=== PATIENT | female | born 1970 | race Caucasian/White ===

== ENCOUNTER 2025-01-08 07:54 | Day surgery (SDC) | payer OTHER ==
[2025-01-08] MEDS ORDERED: BUPIVACAINE 0.5% VIAL IJ ONE (07:55)
[2025-01-08] MEDS ORDERED: methylPREDNISolone acetate IM ONE (07:55)
[2025-01-08 08:16] LABS: HCG URINE TEST NEGATIVE (NEGATIVE)
[2025-01-08] MEDS ORDERED: propofoL IV ONE (09:02)
--- NOTE | 2025-01-08 10:37 | XRAY ---
Indication: Left hip and greater trochanter bursa injection. Intraoperative fluoroscopy provided for 28 seconds. 2 digital spot image submitted for interpretation demonstrates needle tip projecting lateral to left femur neck. Second needle tip lateral to greater trochanter. Small amount of contrast injected for both needle tip placement. Correlate with intraoperative findings/report.
--- NOTE | 2025-01-08 10:38 | XRAY ---
28 seconds of fluoroscopy was used in surgery for a left intra-articular hip and greater trochanteric bursa injection.
== END 2025-01-08 09:36 | disposition home or self-care (01) ==
LOC: SDC-PAIN 07:54
PROVIDERS: ATTEND Psychiatry & Neurology Pain Medicine
DX: M16.12 Unilateral primary osteoarthritis, left hip (principal); E11.9 Type 2 diabetes mellitus without complications
CPT/HCPCS: 20610; 73502; 77002; 81025; 82947; J1010; J2704; Q9966

== ENCOUNTER 2025-09-16 16:28 | Emergency (ER) | payer OTHER ==
--- NOTE | 2025-09-16 16:56 | ERPHSYRPT ---
- History of Present Illness Time Seen by Provider: 09/16/25 16:52 Source: patient Exam Limitations: no limitations Physician History: 55-year-old female history of hypertension type 2 diabetes autoimmune hepatitis with cirrhosis presents to our ED with periumbilical abdominal pain and bright red blood per rectum. Patient's last episode of hematochezia was prior to arrival. No trauma no fever. No nausea no vomiting no diarrhea no rash. Patient declined pain medication. Pain described as an ache that is localized no radiation. Pain worse with palpation. Pain improved with rest. Patient voices no other complaints or concerns at this time. Patient states she has never had a colonoscopy Portions of this note were created with voice recognition technology. There may be grammatical, spelling, punctuation or sound alike errors Timing/Duration: today Severity: moderate Modifying Factors: Improves With: nothing Associated Symptoms: denies symptoms Allergies/Adverse Reactions: Sulfa (Sulfonamide Antibiotics) Allergy (Verified 09/16/25 16:40) Home Medications: Atorvastatin Calcium 10 mg PO DAILY 09/16/25 [History] Furosemide [Lasix] 20 mg PO DAILY 09/16/25 [History] Glimepiride 2 mg [Amaryl 2 MG] 6 mg PO DAILY 09/16/25 [History] Metformin HCl 500 mg [Glucophage 500 MG] 500 mg PO TID 09/16/25 [History] Metoprolol Tartrate 25 mg [Lopressor 25MG Tab] 25 mg PO BID 09/16/25 [History] PARoxetine HCL [Paxil] 20 mg PO DAILY 09/16/25 [History] Pantoprazole Sodium 40 mg PO DAILY 09/16/25 [History] Trazodone HCl 100 mg PO HS 09/16/25 [History] - Review of Systems All Other Systems: Reviewed and Negative - Past Medical History Neurological History: No Pertinent History Cardiac History: Hypertension Respiratory History: No Pertinent History Endocrine Medical History: Diabetes Type II, Liver Disease Musculoskeletal History: Osteoarthritis, Rheumatoid Arthritis Other Medical History: PMH: DM II, LIVER CIRRHOSIS, HTN (MEDICATED), HEART MURMUR (CAUSES SOB), OA, RA. PSH: HERNIA SURGERY, BREAST CANCER LUMPECTOMY - Nursing Vital Signs Nursing Vital Signs: Initial Vital Signs Temperature 97 F 09/16/25 16:29 Pulse Rate 91 H 09/16/25 16:29 Respiratory Rate 20 09/16/25 16:29 Blood Pressure 161/83 09/16/25 16:29 O2 Sat by Pulse Oximetry 96 09/16/25 16:29 Pain Scale Pain Intensity 7 - Physical Exam General Appearance: no apparent distress, alert Eye Exam: PERRL/EOMI Ears, Nose, Throat Exam: normal ENT inspection, moist mucous membranes Neck Exam: normal inspection, full range of motion Respiratory Exam: normal breath sounds, lungs clear, airway intact, No respiratory distress Cardiovascular Exam: regular rate/rhythm, normal heart sounds, normal peripheral pulses Gastrointestinal/Abdomen Exam: soft, normal bowel sounds, tenderness (Mild generalized abdominal tenderness), No mass Back Exam: normal inspection, normal range of motion, No CVA tenderness, No vertebral tenderness Extremity Exam: normal inspection, normal range of motion, pelvis stable Neurologic Exam: alert, oriented x 3, cooperative, normal mood/affect, sensation nml, No motor deficits Skin Exam: normal color, warm, dry, No rash Lymphatic Exam: No adenopathy SpO2 Interpretation: normal O2 Delivery: Room Air - Course Nursing assessment & vital signs reviewed: Yes EKG Interpreted by Me: RATE (73), Sinus Rhythm, NORMAL AXIS, NORMAL INTERVALS, NORMAL QRS - CT Exams Abdomen/Pelvis CT Interpretation: Tele-radiologist Report (New cirrhotic liver with tiny ascites. 2.6 cm hepatic cysts. 4 mm nonobstructing left renal stone. Stable hepatosplenomegaly. Tiny right adrenal adenoma, nonobstructing right renal punctate stone. Small scattered mesenteric periaortic nodes. Remaining abdomen pelvis negative) Ordered Tests: Active Orders 24 hr Category Date Time Status EKG-ER Only STAT Care 09/16/25 17:17 Active IV Insertion STAT Care 09/16/25 17:17 Active ABDOMEN AND PELVIS W/0 CONTRAS [CT] Stat Exams 09/16/25 17:18 Taken CBC W DIFF Stat Lab 09/16/25 17:20 Completed CBC W DIFF Stat Lab 09/17/25 06:51 Ordered CMP Stat Lab 09/16/25 17:20 Completed CMP Stat Lab 09/17/25 06:51 Ordered CULTURE,URINE Stat Lab 09/16/25 19:15 Received LIPASE Stat Lab 09/16/25 17:20 Completed PROTIME WITH INR Stat Lab 09/16/25 18:10 Completed PTT Stat Lab 09/16/25 18:10 Completed TROPONIN Q4H Lab 09/16/25 17:20 Completed TROPONIN Q4H Lab 09/16/25 21:09 Completed TROPONIN Q4H Lab 09/17/25 04:27 Completed UA W/RFX UR CULTURE Stat Lab 09/16/25 19:15 Completed Medication Summary Generic Name Dose Route Start Last Admin Trade Name Freq PRN Reason Stop Dose Admin Sodium Chloride 1,000 mls @ 100 mls/hr 09/16/25 17:30 09/17/25 04:15 Sodium Chloride 0.9% 1000 Ml IV 10/16/25 17:29 100 mls/hr .Q10H DEANGELO Administration Dextrose/Sodium Chloride 500 mls @ 50 mls/hr 09/16/25 18:00 09/17/25 01:21 Dextrose 5%-1/2ns Iv Soln. 500 Ml IV 10/16/25 17:59 0 mls/hr .Q10H DEANGELO Infusion Pantoprazole Sodium 80 mg/ 500 mls @ 50 mls/hr 09/16/25 20:00 09/17/25 06:17 Sodium Chloride IV 10/16/25 19:59 Infused .Q10H DEANGELO Infusion Discontinued Medications Generic Name Dose Route Start Last Admin Trade Name Roosevelt PRN Reason Stop Dose Admin Acetaminophen 1,000 mg 09/17/25 01:20 09/17/25 01:23 Acetaminophen 500 Mg Tablet PO 09/17/25 01:21 1,000 mg STAT STA Administration Acetaminophen Confirm 09/17/25 01:22 Acetaminophen 500 Mg Tablet Administered 09/17/25 01:23 Dose 1,000 mg .ROUTE .STK-MED ONE Sodium Chloride Confirm 09/16/25 20:16 Sodium Chloride 0.9% 500 Ml Administered 09/16/25 20:17 Dose 500 mls @ ud IV .STK-MED ONE Nitrofurantoin Macrocrystals 100 mg 09/16/25 19:31 09/16/25 19:50 Nitrofurantoin Macro 100 Mg Capsule PO 09/16/25 19:32 100 mg STAT ONE Administration Nitrofurantoin Macrocrystals Confirm 09/16/25 19:49 Nitrofurantoin Macro 100 Mg Capsule Administered 09/16/25 19:50 Dose 100 mg .ROUTE .STK-MED ONE Pantoprazole Sodium Confirm 09/16/25 20:16 Pantoprazole 40 Mg Vial Administered 09/16/25 20:17 Dose 80 mg IV .[employer] ONE Lab/Rad Data: Laboratory Result Diagrams 09/16/25 17:20 09/16/25 17:20 Laboratory Results 09/17/25 09/16/25 09/16/25 Range/Units 04:27 21:09 19:15 WBC (3.98-10.04) x10^3/uL RBC (3.93-5.22) x10^6/uL Hgb (11.2-15.7) g/dL Hct (34.1-44.9) % MCV (79.4-94.8) fL MCH (25.6-32.2) pg MCHC (32.2-35.5) g/dL RDW (11.7-14.4) % Plt Count (182-369) x10^3/uL MPV (9.4-12.3) fL Gran % (34.0-71.1) % Immature Gran % (Auto) (0.001-0.429) % Nucleat RBC Rel Count (0.00-0.2) % Eos # (Auto) (0.04-0.36) x10^3/uL Immature Gran # (Auto) (0.001-0.031) x10^3u/L Absolute Lymphs (auto) (1.18-3.74) x10^3/uL Absolute Monos (auto) (0.24-0.86) x10^3/uL Absolute Nucleated RBC (0.00-0.012) x10^3u/L Lymphocytes % (19.3-51.7) % Monocytes % (4.7-12.5) % Eosinophils % (0.7-5.8) % Basophils % (0.1-1.2) % Absolute Granulocytes (1.56-6.13) x10^3/uL Basophils # (0.01-0.08) x10^3/uL PT (9.4-12.5) SECONDS INR (0.8-3.0) APTT (25.1-36.5) SECONDS Sodium (135-145) mmol/L Potassium (3.5-5.1) mmol/L Chloride (98-107) mmol/L Carbon Dioxide (22-30) mmol/L Anion Gap (5-15) MEQ/L BUN (7-17) mg/dL Creatinine (0.52-1.04) mg/dL Estimated GFR ML/MIN Glucose (74-106) mg/dL Calcium (8.4-10.2) mg/dL Total Bilirubin (0.2-1.3) mg/dL AST (14-36) U/L ALT (0-35) U/L Alkaline Phosphatase (38-126) U/L Troponin I < 0.012 < 0.012 (0.000-0.033) ng/mL Serum Total Protein (6.3-8.2) g/dL Albumin (3.5-5.0) g/dL Lipase (23-300) U/L Urine Color Dark Yellow A (Yellow) Urine Appearance Cloudy A (Clear) Urine pH 5.5 (4.6-8.0) Ur Specific Herrin 1.020 (1.005-1.030) Urine Protein Trace A (Negative) Urine Glucose (UA) Negative (Negative) mg/dL Urine Ketones Negative (Negative) Urine Blood Small A (Negative) Urine Nitrite Negative (Negative) Urine Bilirubin Small A (Negative) Urine Urobilinogen 1.0 A (0.2) mg/dL Ur Leukocyte Esterase Trace A (Negative) U Hyaline Cast (Auto) NONE SEEN (0-2) /LPF Urine Microscopic RBC 11-20 A (0-5) /HPF Urine Microscopic WBC 6-10 A (0-5) /HPF Ur Epithelial Cells Few (None Seen) /HPF Urine Bacteria Few A (None Seen) /HPF Urine Culture Reflexed YES (NO) Slides for Path Review 09/16/25 09/16/25 09/16/25 Range/Units 18:10 17:20 17:20 WBC (3.98-10.04) x10^3/uL RBC (3.93-5.22) x10^6/uL Hgb (11.2-15.7) g/dL Hct (34.1-44.9) % MCV (79.4-94.8) fL MCH (25.6-32.2) pg MCHC (32.2-35.5) g/dL RDW (11.7-14.4) % Plt Count (182-369) x10^3/uL MPV (9.4-12.3) fL Gran % (34.0-71.1) % Immature Gran % (Auto) (0.001-0.429) % Nucleat RBC Rel Count (0.00-0.2) % Eos # (Auto) (0.04-0.36) x10^3/uL Immature Gran # (Auto) (0.001-0.031) x10^3u/L Absolute Lymphs (auto) (1.18-3.74) x10^3/uL Absolute Monos (auto) (0.24-0.86) x10^3/uL Absolute Nucleated RBC (0.00-0.012) x10^3u/L Lymphocytes % (19.3-51.7) % Monocytes % (4.7-12.5) % Eosinophils % (0.7-5.8) % Basophils % (0.1-1.2) % Absolute Granulocytes (1.56-6.13) x10^3/uL Basophils # (0.01-0.08) x10^3/uL PT 12.8 H (9.4-12.5) SECONDS INR 1.15 (0.8-3.0) APTT 28.7 (25.1-36.5) SECONDS Sodium 135 (135-145) mmol/L Potassium 3.6 (3.5-5.1) mmol/L Chloride 105 (98-107) mmol/L Carbon Dioxide 23 (22-30) mmol/L Anion Gap 11.0 (5-15) MEQ/L BUN 7 (7-17) mg/dL Creatinine 0.39 L (0.52-1.04) mg/dL Estimated GFR 117.5 ML/MIN Glucose 75 (74-106) mg/dL Calcium 9.3 (8.4-10.2) mg/dL Total Bilirubin 1.30 (0.2-1.3) mg/dL AST 93 H (14-36) U/L ALT 24 (0-35) U/L Alkaline Phosphatase 77 (38-126) U/L Troponin I < 0.012 (0.000-0.033) ng/mL Serum Total Protein 6.9 (6.3-8.2) g/dL Albumin 3.1 L (3.5-5.0) g/dL Lipase 148 (23-300) U/L Urine Color (Yellow) Urine Appearance (Clear) Urine pH (4.6-8.0) Ur Specific Herrin (1.005-1.030) Urine Protein (Negative) Urine Glucose (UA) (Negative) mg/dL Urine Ketones (Negative) Urine Blood (Negative) Urine Nitrite (Negative) Urine Bilirubin (Negative) Urine Urobilinogen (0.2) mg/dL Ur Leukocyte Esterase (Negative) U Hyaline Cast (Auto) (0-2) /LPF Urine Microscopic RBC (0-5) /HPF Urine Microscopic WBC (0-5) /HPF Ur Epithelial Cells (None Seen) /HPF Urine Bacteria (None Seen) /HPF Urine Culture Reflexed (NO) Slides for Path Review 09/16/25 Range/Units 17:20 WBC 3.0 L (3.98-10.04) x10^3/uL RBC 3.51 L (3.93-5.22) x10^6/uL Hgb 9.6 L (11.2-15.7) g/dL Hct 30.9 L (34.1-44.9) % MCV 88.0 (79.4-94.8) fL MCH 27.4 (25.6-32.2) pg MCHC 31.1 L (32.2-35.5) g/dL RDW 18.4 H (11.7-14.4) % Plt Count 51 L (182-369) x10^3/uL MPV 10.5 (9.4-12.3) fL Gran % 64.5 (34.0-71.1) % Immature Gran % (Auto) 4.0 H (0.001-0.429) % Nucleat RBC Rel Count 0.0 (0.00-0.2) % Eos # (Auto) 0.02 L (0.04-0.36) x10^3/uL Immature Gran # (Auto) 0.12 H (0.001-0.031) x10^3u/L Absolute Lymphs (auto) 0.66 L (1.18-3.74) x10^3/uL Absolute Monos (auto) 0.26 (0.24-0.86) x10^3/uL Absolute Nucleated RBC 0.00 (0.00-0.012) x10^3u/L Lymphocytes % 21.9 (19.3-51.7) % Monocytes % 8.6 (4.7-12.5) % Eosinophils % 0.7 (0.7-5.8) % Basophils % 0.3 (0.1-1.2) % Absolute Granulocytes 1.94 (1.56-6.13) x10^3/uL Basophils # 0.01 (0.01-0.08) x10^3/uL PT (9.4-12.5) SECONDS INR (0.8-3.0) APTT (25.1-36.5) SECONDS Sodium (135-145) mmol/L Potassium (3.5-5.1) mmol/L Chloride (98-107) mmol/L Carbon Dioxide (22-30) mmol/L Anion Gap (5-15) MEQ/L BUN (7-17) mg/dL Creatinine (0.52-1.04) mg/dL Estimated GFR ML/MIN Glucose (74-106) mg/dL Calcium (8.4-10.2) mg/dL Total Bilirubin (0.2-1.3) mg/dL AST (14-36) U/L ALT (0-35) U/L Alkaline Phosphatase (38-126) U/L Troponin I (0.000-0.033) ng/mL Serum Total Protein (6.3-8.2) g/dL Albumin (3.5-5.0) g/dL Lipase (23-300) U/L Urine Color (Yellow) Urine Appearance (Clear) Urine pH (4.6-8.0) Ur Specific Herrin (1.005-1.030) Urine Protein (Negative) Urine Glucose (UA) (Negative) mg/dL Urine Ketones (Negative) Urine Blood (Negative) Urine Nitrite (Negative) Urine Bilirubin (Negative) Urine Urobilinogen (0.2) mg/dL Ur Leukocyte Esterase (Negative) U Hyaline Cast (Auto) (0-2) /LPF Urine Microscopic RBC (0-5) /HPF Urine Microscopic WBC (0-5) /HPF Ur Epithelial Cells (None Seen) /HPF Urine Bacteria (None Seen) /HPF Urine Culture Reflexed (NO) Slides for Path Review YES - Progress Progress: improved Progress Note: Case discussed with our hospitalist Dr. Arguelles who who feels patient should be transferred to higher level of care/to her GI doctor. I spoke to our hospitalist at 7:47 PM 09/16/25 19:47 Patient accepted for transfer by Dr. Stover hospitalist at [facility]. Patient was accepted at 8:07 PM 09/16/25 20:10 55-year-old female history of hypertension type 2 diabetes autoimmune hepatitis with cirrhosis presents to our ED with periumbilical abdominal pain and bright red blood per rectum. Patient's last episode of hematochezia was prior to arrival. No trauma no fever. No nausea no vomiting no diarrhea no rash. Patient declined pain medication. Physical exam reveals some abdominal discomfort. CT abdomen pelvis reveals new cirrhotic liver with tiny ascites. Stable hepatosplenomegaly with right adrenal adenoma. Nonobstructing stones. Scattered mesenteric periaortic nodes. Laboratory workup reveals a pancytopenia. WBC at 3.0. Hemoglobin 9.6. Platelet of 51. Coags are normal. Lipase within normal limits. No significant abnormalities observed with reference to liver enzymes. UA observed and urinalysis. Patient received a dose of Macrobid in our ED. Patient reassessed. She is resting comfortably. She continues to decline pain medication. IV fluids/maintenance fluids administered. We contacted [facility] however there are currently no beds available. They expect beds to be available at noon. Patient resting comfortably. No active pain. No active bleeding. Vitals are stable. A.m. labs ordered to reassess for change in H&H. Is currently the change of shift. Patient endorsed to incoming physician to follow up on pending labs and oversee transfer. Patient may have clear liquid diet this morning pending transfer. Patient updated on plan of care. Patient resting comfortably. She voices no other complaints or concerns at this time. Portions of this note were created with voice recognition technology. There may be grammatical, spelling, punctuation or sound alike errors 09/17/25 06:50 History obtained from patient. Differential diagnosis includes bleeding hemorrhoid, diverticulitis, colitis Complexity of problems addressed is moderate acute complicated. No critical care time. Complexity of data reviewed and analyzed is extensive. Test ordered chest reviewed results analyzed and correlated clinically with history and physical exam. Management discussed with hospitalist at [facility]. Risk of complication and or risk of morbidity/mortality of patient management is high. Patient requires transfer to higher level of care. Vital stable. Time spent to transfer patient is approximately 20 minutes. Plan of care established for shared decision making. No social determinants of health present to impede follow-up. Portions of this note were created with voice recognition technology. There may be grammatical, spelling, punctuation or sound alike errors 09/17/25 07:00 Counseled pt/family regarding: lab results, diagnosis, rad results - Departure Departure Disposition: Transfer Clinical Impression: Cirrhosis of liver, Bilateral nephrolithiasis, Ascites, Hepatic cyst, Hepatosplenomegaly, Right adrenal adenoma, Mesenteric periaortic lymph nodes, Bright red blood per rectum, Pancytopenia, UTI (urinary tract infection) Condition: Stable Critical Care Time: No Referrals: DAKSHA GARCIA PILLING MACHINE OPERATOR [Primary Care Provider, UNKNOWN] - Follow up/PCP as directed
[2025-09-16 17:02] VITALS: TEMP 97
[2025-09-16 17:27] LABS: BASOPHIL % 0.3 % (0.1-1.2); Basophil (Absolute #) 0.01 x10^3/uL (0.01-0.08); Eosinophil (Absolute #) 0.02 x10^3/uL (0.04-0.36); Hematocrit 30.9 % (34.1-44.9); Hemoglobin 9.6 g/dL (11.2-15.7); IMMATURE GRAN # 0.12 x10^3u/L (0.001-0.031); IMMATURE GRAN % 4.0 % (0.001-0.429); Lymphocyte (Absolute #) 0.66 x10^3/uL (1.18-3.74); Mean Corpuscular Hemoglobin 27.4 pg (25.6-32.2); Mean Corpuscular Hgb Concent. 31.1 g/dL (32.2-35.5); Monocyte (Absolute #) 0.26 x10^3/uL (0.24-0.86); NUCLEATED RBC # 0.00 x10^3u/L (0.00-0.012); NUCLEATED RBC % 0.0 % (0.00-0.2); Platelet Count 51 x10^3/uL (182-369); Red Blood Count 3.51 x10^6/uL (3.93-5.22); White Blood Count 3.0 x10^3/uL (3.98-10.04)
[2025-09-16 17:34] LABS: Calcium 9.3 mg/dL (8.4-10.2); Carbon Dioxide 23.0 mmol/L (22-30); Creatinine 1 0.39 mg/dL (0.52-1.04); EST GLOMERULAR FILTRATION RATE 117.5 ML/MIN; Glucose 75.0 mg/dL (74-106); Potassium 3.6 mmol/L (3.5-5.1); SGOT/AST 93.0 U/L (14-36); SGPT/ALT 24.0 U/L (0-35); Total Protein 6.9 g/dL (6.3-8.2)
[2025-09-16] MEDS ORDERED: Dextrose 5%-1/2NS IV Soln. 500 ML 500 ML IV ONE (17:53)
[2025-09-16] MEDS: Dextrose 5%-1/2NS IV Soln. 500 ML 500 ML IV SCH (17:54)
[2025-09-16 19:28] LABS: Glucose, Urine Negative (Negative); Protein,Urine Dip Trace (Negative)
[2025-09-16 19:30] LABS: INR 1.15 (0.8-3.0); PROTIME 12.8 SECONDS (9.4-12.5); PTT 28.7 SECONDS (25.1-36.5)
[2025-09-16] MEDS ORDERED: Macrobid 100MG Capsule ONE (19:49)
[2025-09-16] MEDS: Macrobid 100MG Capsule PO ONE (19:50)
[2025-09-16 19:58] LABS: Slide Review 1 YES
[2025-09-16] MEDS ORDERED: PROTONIX 40 MG IV IV ONE (20:16)
[2025-09-16] MEDS: PROTONIX 40 MG IV*** 80 MG in Sodium Chloride 0.9% 500 ML 500 ML IV SCH (20:17)
[2025-09-17] MEDS ORDERED: TYLENOL EXTRA STRENGTH 500 MG ONE (01:22)
[2025-09-17] MEDS: TYLENOL EXTRA STRENGTH 500 MG PO STA (01:23)
[2025-09-17 07:20] LABS: Calcium 8.5 mg/dL (8.4-10.2); Carbon Dioxide 23.0 mmol/L (22-30); Creatinine 1 0.44 mg/dL (0.52-1.04); EST GLOMERULAR FILTRATION RATE 114.2 ML/MIN; Glucose 104.0 mg/dL (74-106); Potassium 3.2 mmol/L (3.5-5.1); SGOT/AST 90.0 U/L (14-36); SGPT/ALT 22.0 U/L (0-35); Total Protein 6.5 g/dL (6.3-8.2)
[2025-09-17 07:24] LABS: Hematocrit 28.0 % (34.1-44.9); Hemoglobin 8.5 g/dL (11.2-15.7); Mean Corpuscular Hemoglobin 26.7 pg (25.6-32.2); Mean Corpuscular Hgb Concent. 30.4 g/dL (32.2-35.5); Platelet Count 41 x10^3/uL (182-369); Red Blood Count 3.18 x10^6/uL (3.93-5.22)
[2025-09-17 07:33] LABS: White Blood Count 2.0 x10^3/uL (3.98-10.04)
--- NOTE | 2025-09-17 08:47 | XRAY ---
Indication: Pain. Multiple contiguous axial images obtained through the abdomen and pelvis without contrast. Comparison: January 20, 2017 Lung bases again demonstrates a few tiny calcified granulomas in both lung bases and distal paraesophageal. No infiltrate or effusion. Heart not enlarged. Noncontrasted stomach and bowel loops appear nonobstructed. New cirrhotic liver with tiny ascites greatest around liver and splenorenal varices. Also new 2.6 cm left lobe hepatic cyst. Liver remains enlarged measuring 24.3 cm and spleen remains enlarged measuring 25.1 cm. Stable 1.3 cm right adrenal adenoma, nonobstructing right renal punctate calculus, small uterine calcified fibroids, hepatic/splenic calcified granulomas, and cholecystectomy. Left lower kidney demonstrates new 4 mm nonobstructing calculus.. There remains scattered small mesenteric and periaortic lymph nodes again largest periaortic measuring 1.2 x 2.7 cm. Remaining liver, pancreas, spleen, adrenal glands, kidneys, ureters, and bladder are unremarkable for noncontrast exam. Again minimal scattered aortoiliac calcifications without AAA. Osseous structures intact again with lumbosacral junction degenerative disc disease and small L5 vertebral hemangioma. Intact ventral hernia mesh graft. Impression: 1. New cirrhotic liver with tiny ascites and splenorenal varices. Also new small left hepatic cyst. 2. Again scattered nonspecific small mesenteric and periaortic nodes. 3. Chronic findings including nonobstructing microcalculus bilaterally, hepatosplenomegaly, right adrenal adenoma, arteriosclerotic disease, chronic bony findings, and old granulomatous disease.
[2025-09-17] MEDS: Lopressor 25MG Tab PO ONE (09:14)
[2025-09-17] MEDS ORDERED: Lopressor 25MG Tab ONE (09:14)
[2025-09-17 09:37] LABS: BAND 6 % (0.0-2.0); Total Cells Counted 100
--- NOTE | 2025-09-17 10:53 | ERPHSYRPT ---
- History of Present Illness Time Seen by Provider: 09/16/25 16:52 Patient Subjective Stated Complaint: blood in stool x couple days, bright red, diarrhea last 3 months, patient states she has tried taking medication for diarrhea but nothing helps Triage Nursing Assessment: patient presents to ed via private vehicle, patient able to ambulate into ed without complication, patient skin pink, warm, dry/flaky skin noted to BLE, patient denies sob/chest pain, patient's abdomen soft/distended, nontender upon palpation, bowel sounds active x 4 quadrants, patient alert and oriented x 4, afebrile Allergies/Adverse Reactions: Sulfa (Sulfonamide Antibiotics) Allergy (Verified 09/16/25 16:40) Home Medications: Atorvastatin Calcium 10 mg PO DAILY 09/16/25 [History] Furosemide [Lasix] 20 mg PO DAILY 09/16/25 [History] Glimepiride 2 mg [Amaryl 2 MG] 6 mg PO DAILY 09/16/25 [History] Metformin HCl 500 mg [Glucophage 500 MG] 500 mg PO TID 09/16/25 [History] Metoprolol Tartrate 25 mg [Lopressor 25MG Tab] 25 mg PO BID 09/16/25 [History] PARoxetine HCL [Paxil] 20 mg PO DAILY 09/16/25 [History] Pantoprazole Sodium 40 mg PO DAILY 09/16/25 [History] Trazodone HCl 100 mg PO HS 09/16/25 [History] Hx Tetanus, Diphtheria Vaccination/Date Given: Yes Hx Influenza Vaccination/Date Given: No Hx Pneumococcal Vaccination/Date Given: No Travel Risk - International Travel Have you traveled outside of the country in past 3 weeks: No - Emerging Infectious Disease Symptoms: Diarrhea - Past Medical History Neurological History: No Pertinent History Cardiac History: Hypertension Respiratory History: No Pertinent History Endocrine Medical History: Diabetes Type II, Liver Disease Musculoskeletal History: Osteoarthritis, Rheumatoid Arthritis Other Medical History: PMH: DM II, LIVER CIRRHOSIS, HTN (MEDICATED), HEART MURMUR (CAUSES SOB), OA, RA. PSH: HERNIA SURGERY, BREAST CANCER LUMPECTOMY - Past Surgical History Past Surgical History: Yes Female Surgical History: Lumpectomy Other Surgical History: february 2025- EGD- had slow esophageal varice leak but not bad enough to band- done by Dr. navarro hogan - Social History Smoking Status: Never smoker Exposure to second hand smoke: No Drug Use: none - Social Determinants of Health Will the patient participate in the screening: Yes Do you worry about a steady place to live?: No Do you have any problems with any of the following?: No known problems In the past 12 months,have you had to go without utilities?: No Transportation Issues: No Has anyone in your support network made you feel unsafe?: No Have you or anyone in your house had to go w/o enough food: No - Nursing Vital Signs Nursing Vital Signs: Initial Vital Signs Temperature 97 F 09/16/25 16:29 Pulse Rate 91 H 09/16/25 16:29 Respiratory Rate 20 09/16/25 16:29 Blood Pressure 161/83 09/16/25 16:29 O2 Sat by Pulse Oximetry 96 09/16/25 16:29 Pain Scale Pain Intensity 0 - Physical Exam SpO2: 98 Ordered Tests: Active Orders 24 hr Category Date Time Status EKG-ER Only STAT Care 09/16/25 17:17 Active IV Insertion STAT Care 09/16/25 17:17 Active ABDOMEN AND PELVIS W/0 CONTRAS [CT] Stat Exams 09/16/25 17:18 Completed CBC W DIFF Stat Lab 09/16/25 17:20 Completed CBC W DIFF Stat Lab 09/17/25 07:05 Results CMP Stat Lab 09/16/25 17:20 Completed CMP Stat Lab 09/17/25 07:05 Completed CULTURE,URINE Stat Lab 09/16/25 19:15 Received LIPASE Stat Lab 09/16/25 17:20 Completed Manual Differential NC Stat Lab 09/17/25 07:05 Results PROTIME WITH INR Stat Lab 09/16/25 18:10 Completed PTT Stat Lab 09/16/25 18:10 Completed Pathologist Review Stat Lab 09/17/25 07:05 Results TROPONIN Q4H Lab 09/16/25 17:20 Completed TROPONIN Q4H Lab 09/16/25 21:09 Completed TROPONIN Q4H Lab 09/17/25 04:27 Completed UA W/RFX UR CULTURE Stat Lab 09/16/25 19:15 Completed Medication Summary Generic Name Dose Route Start Last Admin Trade Name Freq PRN Reason Stop Dose Admin Sodium Chloride 1,000 mls @ 100 mls/hr 09/16/25 17:30 11/05/25 04:15 Sodium Chloride 0.9% 1000 Ml IV 10/16/25 17:29 100 mls/hr .Q10H DEANGELO Administration Dextrose/Sodium Chloride 500 mls @ 50 mls/hr 09/16/25 18:00 09/17/25 01:21 Dextrose 5%-1/2ns Iv Soln. 500 Ml IV 10/16/25 17:59 0 mls/hr .Q10H DEANGELO Infusion Pantoprazole Sodium 80 mg/ 500 mls @ 50 mls/hr 09/16/25 20:00 09/17/25 06:17 Sodium Chloride IV 10/16/25 19:59 Infused .Q10H DEANGELO Infusion Discontinued Medications Generic Name Dose Route Start Last Admin Trade Name Roosevelt PRN Reason Stop Dose Admin Acetaminophen 1,000 mg 09/17/25 01:20 09/17/25 01:23 Acetaminophen 500 Mg Tablet PO 09/17/25 01:21 1,000 mg STAT STA Administration Acetaminophen Confirm 09/17/25 01:22 Acetaminophen 500 Mg Tablet Administered 09/17/25 01:23 Dose 1,000 mg .ROUTE .STK-MED ONE Sodium Chloride Confirm 09/16/25 20:16 Sodium Chloride 0.9% 500 Ml Administered 09/16/25 20:17 Dose 500 mls @ ud IV .STK-MED ONE Metoprolol Tartrate 25 mg 09/17/25 09:12 09/17/25 09:14 Metoprolol Tartrate 25 Mg Tab PO 09/17/25 09:13 25 mg STAT ONE Administration Metoprolol Tartrate Confirm 09/17/25 09:14 Metoprolol Tartrate 25 Mg Tab Administered 09/17/25 09:15 Dose 25 mg .ROUTE .STK-MED ONE Nitrofurantoin Macrocrystals 100 mg 09/16/25 19:31 09/16/25 19:50 Nitrofurantoin Macro 100 Mg Capsule PO 09/16/25 19:32 100 mg STAT ONE Administration Nitrofurantoin Macrocrystals Confirm 09/16/25 19:49 Nitrofurantoin Macro 100 Mg Capsule Administered 09/16/25 19:50 Dose 100 mg .ROUTE .STK-MED ONE Pantoprazole Sodium Confirm 09/16/25 20:16 Pantoprazole 40 Mg Vial Administered 09/16/25 20:17 Dose 80 mg IV .STK-MED ONE Lab/Rad Data: Laboratory Result Diagrams 09/17/25 07:05 09/17/25 07:05 Laboratory Results 09/17/25 09/17/25 09/17/25 Range/Units 07:05 07:05 04:27 WBC 2.0 L (3.98-10.04) x10^3/uL RBC 3.18 L (3.93-5.22) x10^6/uL Hgb 8.5 L (11.2-15.7) g/dL Hct 28.0 L (34.1-44.9) % MCV 88.1 (79.4-94.8) fL MCH 26.7 (25.6-32.2) pg MCHC 30.4 L (32.2-35.5) g/dL RDW 18.4 H (11.7-14.4) % Plt Count 41 L (182-369) x10^3/uL MPV 10.3 (9.4-12.3) fL Gran % (34.0-71.1) % Immature Gran % (Auto) (0.001-0.429) % Nucleat RBC Rel Count (0.00-0.2) % Eos # (Auto) (0.04-0.36) x10^3/uL Immature Gran # (Auto) (0.001-0.031) x10^3u/L Absolute Lymphs (auto) (1.18-3.74) x10^3/uL Absolute Monos (auto) (0.24-0.86) x10^3/uL Absolute Nucleated RBC (0.00-0.012) x10^3u/L Lymphocytes % (19.3-51.7) % Monocytes % (4.7-12.5) % Eosinophils % (0.7-5.8) % Basophils % (0.1-1.2) % Absolute Granulocytes (1.56-6.13) x10^3/uL Segmented Neutrophils 68 (34.0-71.1) % Band Neutrophils 6 H (0.0-2.0) % Lymphocytes (Manual) 15 L (19.3-51.7) % Monocytes (Manual) 7 (4.7-12.5) % Eosinophils (Manual) 1 (0.7-5.8) % Basophils # (0.01-0.08) x10^3/uL Metamyelocytes 1 % Myelocytes 2 % Platelet Estimate DECREASED (NORMAL) RBC Morphology ABNORMAL Anisocytosis 1+ Smear Path Review Pending PT (9.4-12.5) SECONDS INR (0.8-3.0) APTT (25.1-36.5) SECONDS Sodium 136 (135-145) mmol/L Potassium 3.2 L (3.5-5.1) mmol/L Chloride 107 (98-107) mmol/L Carbon Dioxide 23 (22-30) mmol/L Anion Gap 8.7 (5-15) MEQ/L BUN 8 (7-17) mg/dL Creatinine 0.44 L (0.52-1.04) mg/dL Estimated GFR 114.2 ML/MIN Glucose 104 (74-106) mg/dL Calcium 8.5 (8.4-10.2) mg/dL Total Bilirubin 1.40 H (0.2-1.3) mg/dL AST 90 H (14-36) U/L ALT 22 (0-35) U/L Alkaline Phosphatase 68 (38-126) U/L Troponin I < 0.012 (0.000-0.033) ng/mL Serum Total Protein 6.5 (6.3-8.2) g/dL Albumin 2.9 L (3.5-5.0) g/dL Lipase (23-300) U/L Urine Color (Yellow) Urine Appearance (Clear) Urine pH (4.6-8.0) Ur Specific [place] (1.005-1.030) Urine Protein (Negative) Urine Glucose (UA) (Negative) mg/dL Urine Ketones (Negative) Urine Blood (Negative) Urine Nitrite (Negative) Urine Bilirubin (Negative) Urine Urobilinogen (0.2) mg/dL Ur Leukocyte Esterase (Negative) U Hyaline Cast (Auto) (0-2) /LPF Urine Microscopic RBC (0-5) /HPF Urine Microscopic WBC (0-5) /HPF Ur Epithelial Cells (None Seen) /HPF Urine Bacteria (None Seen) /HPF Urine Culture Reflexed (NO) Slides for Path Review 09/16/25 09/16/25 09/16/25 Range/Units 21:09 19:15 18:10 WBC (3.98-10.04) x10^3/uL RBC (3.93-5.22) x10^6/uL Hgb (11.2-15.7) g/dL Hct (34.1-44.9) % MCV (79.4-94.8) fL MCH (25.6-32.2) pg MCHC (32.2-35.5) g/dL RDW (11.7-14.4) % Plt Count (182-369) x10^3/uL MPV (9.4-12.3) fL Gran % (34.0-71.1) % Immature Gran % (Auto) (0.001-0.429) % Nucleat RBC Rel Count (0.00-0.2) % Eos # (Auto) (0.04-0.36) x10^3/uL Immature Gran # (Auto) (0.001-0.031) x10^3u/L Absolute Lymphs (auto) (1.18-3.74) x10^3/uL Absolute Monos (auto) (0.24-0.86) x10^3/uL Absolute Nucleated RBC (0.00-0.012) x10^3u/L Lymphocytes % (19.3-51.7) % Monocytes % (4.7-12.5) % Eosinophils % (0.7-5.8) % Basophils % (0.1-1.2) % Absolute Granulocytes (1.56-6.13) x10^3/uL Segmented Neutrophils (34.0-71.1) % Band Neutrophils (0.0-2.0) % Lymphocytes (Manual) (19.3-51.7) % Monocytes (Manual) (4.7-12.5) % Eosinophils (Manual) (0.7-5.8) % Basophils # (0.01-0.08) x10^3/uL Metamyelocytes % Myelocytes % Platelet Estimate (NORMAL) RBC Morphology Anisocytosis Smear Path Review PT 12.8 H (9.4-12.5) SECONDS INR 1.15 (0.8-3.0) APTT 28.7 (25.1-36.5) SECONDS Sodium (135-145) mmol/L Potassium (3.5-5.1) mmol/L Chloride (98-107) mmol/L Carbon Dioxide (22-30) mmol/L Anion Gap (5-15) MEQ/L BUN (7-17) mg/dL Creatinine (0.52-1.04) mg/dL Estimated GFR ML/MIN Glucose (74-106) mg/dL Calcium (8.4-10.2) mg/dL Total Bilirubin (0.2-1.3) mg/dL AST (14-36) U/L ALT (0-35) U/L Alkaline Phosphatase (38-126) U/L Troponin I < 0.012 (0.000-0.033) ng/mL Serum Total Protein (6.3-8.2) g/dL Albumin (3.5-5.0) g/dL Lipase (23-300) U/L Urine Color Dark Yellow A (Yellow) Urine Appearance Cloudy A (Clear) Urine pH 5.5 (4.6-8.0) Ur Specific [place] 1.020 (1.005-1.030) Urine Protein Trace A (Negative) Urine Glucose (UA) Negative (Negative) mg/dL Urine Ketones Negative (Negative) Urine Blood Small A (Negative) Urine Nitrite Negative (Negative) Urine Bilirubin Small A (Negative) Urine Urobilinogen 1.0 A (0.2) mg/dL Ur Leukocyte Esterase Trace A (Negative) U Hyaline Cast (Auto) NONE SEEN (0-2) /LPF Urine Microscopic RBC 11-20 A (0-5) /HPF Urine Microscopic WBC 6-10 A (0-5) /HPF Ur Epithelial Cells Few (None Seen) /HPF Urine Bacteria Few A (None Seen) /HPF Urine Culture Reflexed YES (NO) Slides for Path Review 09/16/25 09/16/25 09/16/25 Range/Units 17:20 17:20 17:20 WBC 3.0 L (3.98-10.04) x10^3/uL RBC 3.51 L (3.93-5.22) x10^6/uL Hgb 9.6 L (11.2-15.7) g/dL Hct 30.9 L (34.1-44.9) % MCV 88.0 (79.4-94.8) fL MCH 27.4 (25.6-32.2) pg MCHC 31.1 L (32.2-35.5) g/dL RDW 18.4 H (11.7-14.4) % Plt Count 51 L (182-369) x10^3/uL MPV 10.5 (9.4-12.3) fL Gran % 64.5 (34.0-71.1) % Immature Gran % (Auto) 4.0 H (0.001-0.429) % Nucleat RBC Rel Count 0.0 (0.00-0.2) % Eos # (Auto) 0.02 L (0.04-0.36) x10^3/uL Immature Gran # (Auto) 0.12 H (0.001-0.031) x10^3u/L Absolute Lymphs (auto) 0.66 L (1.18-3.74) x10^3/uL Absolute Monos (auto) 0.26 (0.24-0.86) x10^3/uL Absolute Nucleated RBC 0.00 (0.00-0.012) x10^3u/L Lymphocytes % 21.9 (19.3-51.7) % Monocytes % 8.6 (4.7-12.5) % Eosinophils % 0.7 (0.7-5.8) % Basophils % 0.3 (0.1-1.2) % Absolute Granulocytes 1.94 (1.56-6.13) x10^3/uL Segmented Neutrophils (34.0-71.1) % Band Neutrophils (0.0-2.0) % Lymphocytes (Manual) (19.3-51.7) % Monocytes (Manual) (4.7-12.5) % Eosinophils (Manual) (0.7-5.8) % Basophils # 0.01 (0.01-0.08) x10^3/uL Metamyelocytes % Myelocytes % Platelet Estimate (NORMAL) RBC Morphology Anisocytosis Smear Path Review PT (9.4-12.5) SECONDS INR (0.8-3.0) APTT (25.1-36.5) SECONDS Sodium 135 (135-145) mmol/L Potassium 3.6 (3.5-5.1) mmol/L Chloride 105 (98-107) mmol/L Carbon Dioxide 23 (22-30) mmol/L Anion Gap 11.0 (5-15) MEQ/L BUN 7 (7-17) mg/dL Creatinine 0.39 L (0.52-1.04) mg/dL Estimated GFR 117.5 ML/MIN Glucose 75 (74-106) mg/dL Calcium 9.3 (8.4-10.2) mg/dL Total Bilirubin 1.30 (0.2-1.3) mg/dL AST 93 H (14-36) U/L ALT 24 (0-35) U/L Alkaline Phosphatase 77 (38-126) U/L Troponin I < 0.012 (0.000-0.033) ng/mL Serum Total Protein 6.9 (6.3-8.2) g/dL Albumin 3.1 L (3.5-5.0) g/dL Lipase 148 (23-300) U/L Urine Color (Yellow) Urine Appearance (Clear) Urine pH (4.6-8.0) Ur Specific [place] (1.005-1.030) Urine Protein (Negative) Urine Glucose (UA) (Negative) mg/dL Urine Ketones (Negative) Urine Blood (Negative) Urine Nitrite (Negative) Urine Bilirubin (Negative) Urine Urobilinogen (0.2) mg/dL Ur Leukocyte Esterase (Negative) U Hyaline Cast (Auto) (0-2) /LPF Urine Microscopic RBC (0-5) /HPF Urine Microscopic WBC (0-5) /HPF Ur Epithelial Cells (None Seen) /HPF Urine Bacteria (None Seen) /HPF Urine Culture Reflexed (NO) Slides for Path Review YES - Departure Clinical Impression: Cirrhosis of liver, Bilateral nephrolithiasis, Ascites, Hepatic cyst, Hepatosplenomegaly, Right adrenal adenoma, Mesenteric periaortic lymph nodes, Bright red blood per rectum, Pancytopenia, UTI (urinary tract infection) Condition: Stable Referrals: DAKSHA GARCIA, [facility]ATIONS SPECIALIST [Primary Care Provider, UNKNOWN] - Follow up/PCP as directed
[2025-09-17 15:05] VITALS: RESP 22
[2025-09-17 16:04] VITALS: BP 152/86; PULSE 79; O2SAT 95
== END 2025-09-17 16:22 | disposition short-term general hospital (02) ==
LOC: ED 16:28
DX: K74.60 Unspecified cirrhosis of liver (principal); N20.0 Calculus of kidney; R18.8 Other ascites; R16.2 Hepatomegaly with splenomegaly, not elsewhere classified; D35.01 Benign neoplasm of right adrenal gland; R59.0 Localized enlarged lymph nodes; K62.5 Hemorrhage of anus and rectum; D61.818 Other pancytopenia; N39.0 Urinary tract infection, site not specified; R10.33 Periumbilical pain; I10 Essential (primary) hypertension; E11.9 Type 2 diabetes mellitus without complications; Z79.84 Long term (current) use of oral hypoglycemic drugs; Z79.899 Other long term (current) drug therapy